=== PATIENT | female | born 1950 | race Caucasian/White ===

== ENCOUNTER 2019-03-14 11:57 | Emergency (ER) | payer OTHER, MEDICAID ==
[~2019-03-14] VITALS: Ht 139.7 cm; Wt 78.9 kg
[2019-03-14 12:27] VITALS: BP 93/56
--- NOTE | 2019-03-14 13:19 | NUR ---
PATIENT WHEELCHAIR ASSISTED TO BED 2.
--- NOTE | 2019-03-14 13:38 | NUR ---
Patient being evaluated by Dr. Pittman at bedside.
--- NOTE | 2019-03-14 14:21 | NUR ---
Patient discharged with v/s stable. Written and verbal after care instructions given and explained. Patient verbalized understanding. Wheel Chair Assisted with by caregiver. All questions addressed prior to discharge. Advised to follow up with PMD.
== END 2019-03-14 14:21 | disposition home or self-care (01) ==
LOC: MED 11:57
DX: S82.891A Other fracture of right lower leg, initial encounter for closed fracture (principal); E78.5 Hyperlipidemia, unspecified; H54.7 Unspecified visual loss; X50.1XXA Overexertion from prolonged static or awkward postures, initial encounter; Y93.89 Activity, other specified; Y92.89 Other specified places as the place of occurrence of the external cause; Y99.8 Other external cause status
CPT/HCPCS: 73610; 73630; 99283